=== PATIENT | male | born 1955 | race Caucasian/White ===

== ENCOUNTER → 2016-06-06 | Day surgery (SDC) | payer OTHER ==
[~2016-06-06] VITALS: Ht 177.8 cm; Wt 106.1 kg
[~2016-06-06] MED LIST: ADVIL200 M2 PO; ATORVASTATIN CA20 M1 PO; CLOBETASOL PROP15 GM TOP; LOSARTAN POTASS50 M1 PO; OXYCODONE-ACET1 EACH PO; PROCHLORPERAZIN10 MG PO; TOPICORT100 ML TOP; VITAMIN D250000 UNIT PO
--- NOTE | 2016-06-06 10:21 | RADIOLOGY REPORT ---
EXAMINATION: XR PORTABLE CHEST CLINICAL INFORMATION: Port-A-Cath insertion COMPARISON: CT of April 15, 2016 TECHNIQUE: Portable view of the chest was obtained. FINDINGS: No significant abnormality is noted involving the heart, lungs, mediastinum, bony thorax or soft tissues. Right subclavian port catheter seen in place with tip in the region of the caval atrial junction. No pneumothorax. IMPRESSION: No acute disease. No pneumothorax.
--- NOTE | 2016-06-06 15:04 | Operative Report ---
Operative/Inv Procedure Report Surgery Date: 06/06/16 Name of Procedure: Fluoroscopic-guided insertion of tunneled Port-A-Cath via right subclavian vein Pre-Operative Diagnosis: Metastatic colon cancer Post-Operative Diagnosis: Same Estimated Blood Loss: scant Surgeon/Cereal Supervisor: CINTIA WALTERS,FLACO Portillo Anesthesia: local monitored anesthesi Operative/Procedure Note Note: With the patient supine on the OR table, right arm tucked, head not turned, after induction of MAC sedation, the patient's right subclavian area, including the shoulder neck and contralateral chest, were prepped and draped in the usual sterile fashion. After injecting local anesthetic in the right infraclavicular area, skin, subcutaneous to the clavicle, and inferiorly where the pocket will be, the patient was repositioned to Trendelenburg. Putting your right index finger on the sternal notch and thumb pressing down lateral to the curve of the clavicle, I made a puncture through the skin with the 15 blade scalpel next to thumb. Then along that line towards the tip of your finger, advance a large- bore needle, bevel towards the feet, on a slip tip 10 mL syringe barrel flat against the deltoid, advancing to bone and then "walking" it down just under the clavicle keeping the needle flat as possible, while maintaining vacuum with the plunger, accessing the subclavian venous blood, then replacing the syringe with a wire, sliding in with minimum resistance, confirming the position with the C- arm fluoroscope, making sure the wire is traveling down along the cava towards the right side of the heart and not up or across, and no ectopy. Next I secured the wire to the drape, measured (approximately 23 cm), cut and attached the catheter to the port. Approximately 3-4 cm inferior to the stick site a 2-1/2 cm long skin incision was made with a 15 blade scalpel along Langers lines. It was deepened with cautery and a space was developed inferiorly under the subcutaneous layer. The Port-A-Cath was laid in there and secured in [address] with 2-0 Prolene through the holes in the port, the sutures were kept loose on snaps at this point. Next the catheter was tunneled up subcutaneously with a snap and brought out through the stick site next to the wire. Then the dilator only, was passed over the wire until you could feel it slide under the clavicle, then removed, then re-advanced this time with the peel-away sheath over it, while advancing simultaneously pull the dilator out and advance the sheath, eventually pulling out the dilator and wire completely. Then the catheter was put into the sheath as far as it'll go then while holding that knuckle down with DeBakey's, gently peel-away the sheath with your executive personal assistant. Now the correct position of the catheter was confirmed with the fluoroscope, using a Arriaga needle and heparinized saline solution, the catheter was first aspirated then flushed with approximately 3 mL's, with minimal resistance. The patient was repositioned to neutral, after tying down the 2 Prolenes, the larger incision was closed in layers, 3-0 Vicryl deep and 4-0 subcuticular Monocryl for the skin, and one subcuticular Monocryl for the stick site. Both areas were covered with Mastisol Steri-Strips Telfa and Tegaderm. Chest x-ray was ordered to be done in the recovery room. Lap and sponge counts were correct. Wound expectancy was clean, IV fluids crystalloid, complications none, patient tolerated the procedure well was awakened and returned to the recovery room in satisfactory condition.
--- NOTE | 2016-06-06 16:45 | RADIOLOGY REPORT ---
EXAMINATION:\H\ \N\XR CHEST CLINICAL INFORMATION: Port-A-Cath insertion in operating room. COMPARISON: Chest CT from 04/15/2016 TECHNIQUE: Fluoroscopic imaging assistance was provided to the operating room for Port-A-Cath insertion. 2 spot fluoroscopy images of the chest are submitted into the electronic picture archive. FLUOROSCOPY TIME: 0.7 minutes. DOSE: 7.69 mGy FINDINGS: There is a right chest medication port with intact central catheter terminating at the junction of the superior vena cava and right atrium. IMPRESSION: Fluoroscopic imaging assistance provided to the operating room for Port-A-Cath insertion.
== END ==
LOC: STS 04:10
DX: C18.9 Malignant neoplasm of colon, unspecified (principal); K76.9 Liver disease, unspecified; E78.2 Mixed hyperlipidemia; Z87.891 Personal history of nicotine dependence
CPT/HCPCS: C1751; J0690; J2250

== ENCOUNTER 2016-06-24 11:14 | Emergency (ER) | payer OTHER ==
[~2016-06-24] VITALS: Ht 177.8 cm; Wt 96.2 kg
[~2016-06-24 11:14] MED LIST changes: -ADVIL200 M2 PO; -LOSARTAN POTASS50 M1 PO; -OXYCODONE-ACET1 EACH PO; -PROCHLORPERAZIN10 MG PO; -TOPICORT100 ML TOP
--- NOTE | 2016-06-24 11:42 | ED GENERAL ADULT ---
History of Present Illness General Chief Complaint: Dyspnea (COPD, CHF, Other) Stated Complaint: SOB,ABD PAIN Source: patient, family, old records Exam Limitations: no limitations Allergies Coded Allergies: No Known Allergies (03/17/16) Triage Note: PT TO ED WITH C/O SOB AND RIGHT ABD PAIN, NOW RADIATING ACROSS ABD TO LEFT SIDE. HX COLON, AND LIVER CA, RECENTLY DIAGNOSED, HAD CHEMO X 1 SO FAR. Triage Nurses Notes Reviewed? yes HPI: Patient is a 60-year-old male presents complaining of severe abdominal pain and shortness of breath. Symptoms onset yesterday. Pain in the abdomen is sharp pain currently 10 out of 10, no exacerbating or alleviating factors. Patient took Advil yesterday with no improvement. Patient reports that dyspnea also began yesterday, worsened with ambulation. Patient has a history of metastatic colon cancer, has had one dose of chemotherapy, was supposed to have another round this week but was reportedly dehydrated and received IV fluids but no treatment. Positive diarrhea 2-3 days. Patient denies chest pain, cough, fevers, chills, vomiting, hematochezia, melena. (VEE GORDON,SOCORRO) Vital Signs & Intake/Output Vital Signs & Intake/Output Vital Signs Date Time Temp Pulse Resp B/P Pulse O2 O2 Flow FiO2 Ox Delivery Rate 06/24 1740 98.4 112 16 108/74 98 Nasal 2.0L Cannula 06/24 1729 113 19 104/69 98 Nasal 2.0L Cannula / 1541 98.6 111 20 101/65 96 Nasal 3.0L Cannula / 1420 16 93 Nasal 2.0L Cannula / 1418 98.1 109 18 101/71 88 Room Air 02/ 1305 98.1 110 22 85/54 94 Room Air 02/ 1230 95 02/03 1228 116 18 90/51 94 Room Air / 1145 98.1 130 18 80/60 95 /03 1121 97.9 120 20 88 Room Air Room Air Reconcile Medications Atorvastatin Calcium 20 MG TABLET 1 TAB PO DAILY HPL (Reported) Clobetasol Propionate 0.05 % CREAM..G. 1 RUBI TOP BID PSORIASIS (Reported) apply to affected area(s) Desoximetasone (Topicort) 0.25 % SPRAY 1 SPRAY TOP AD PRN PSORIASIS (Reported ) Ergocalciferol (Vitamin D2) (Vitamin D2) 50,000 UNIT CAPSULE 1 CAP PO QW SUPPLEMENT (Reported) Ibuprofen (Advil) 200 MG TABLET 2 TAB PO PRN PAIN (Reported) Losartan Potassium 50 MG TABLET 1 TAB PO QAM BP (Reported) Oxycodone HCl/Acetaminophen (Oxycodone-Acetaminophen 5-325) 5 MG-325 MG TABLET 1 TAB PO PRN PAIN (Reported) Prochlorperazine Maleate 10 MG TABLET 1 TAB PO PRN N/V (Reported) (REBA GREER DO) ED Sepsis Exam Date of Focused Sepsis Exam: 06/24/16 Time of Focused Sepsis Exam: 1145 Sepsis Cardiac Exam: Tachycardia Sepsis Resp Exam: CTA Sepsis Cap Refill Exam: <2 Sec Sepsis Peripheral Pulse Exam: Normal Sepsis Peripheral Pulse Location: Radial Sepsis Skin Color Exam: Normal for Ethnicity Skin Temp/Moisture Exam: Warm/Dry (SOCORRO MCHUGH) Past History Travel History Traveled to [place] past 21 day No Medical History Any Pertinent Medical History? see below for history Neurological: NONE EENT: NONE Cardiovascular: hyperlipidemia Respiratory: NONE Gastrointestinal: COLON CA Hepatic: LIVER CA Renal: NONE Musculoskeletal: NONE Psychiatric: NONE Endocrine: NONE Blood Disorders: NONE Cancer(s): COLON AND LIVER CA Surgical History Surgical History: cholecystectomy Psychosocial History What is your primary language Belizean Tobacco Use: Quit >30 days ago ETOH Use: denies use Illicit Drug Use: denies illicit drug use Family History Hx Contributory? No (SOCORRO MCHUGH) Review of Systems Review of Systems Constitutional: Reports: malaise. Denies: chills, fever. EENTM: Reports: no symptoms. Respiratory: Reports: short of breath. Denies: cough. Cardiovascular: Denies: chest pain, peripheral edema, syncope. GI: Reports: see HPI, abdominal pain, diarrhea (none today). Denies: vomiting. Genitourinary: Reports: no symptoms. Musculoskeletal: Reports: no symptoms. Skin: Reports: no symptoms. Neurological/Psychological: Reports: no symptoms. Hematologic/Endocrine: Reports: no symptoms. Immunologic/Allergic: Reports: no symptoms. (SOCORRO MCHUGH) Physical Exam Physical Exam General Appearance: alert, awake Head: atraumatic, normal appearance Eyes: Bilateral: normal appearance, PERRL, EOMI. Ears, Nose, Throat: hearing grossly normal Neck: normal inspection, supple, full range of motion Respiratory: normal breath sounds, no respiratory distress, lungs clear Cardiovascular: tachycardia (regular rhythm) Peripheral Pulses: 2+ radial (R) Gastrointestinal: soft, diffuse abdominal tenderness with guarding on the left side Back: normal inspection, normal range of motion Extremities: normal inspection, normal capillary refill, normal range of motion, no edema Neurologic/Psych: awake, alert, oriented x 3, normal mood/affect Skin: intact, normal color, warm/dry Lymphatic: no anterior cervical trina Core Measures ACS in differential dx? No CVA/TIA Diagnosis: No Severe Sepsis Present: Yes BC x2: Yes Lactic Acid x2: Yes IV ABX Broad Spectrum: Yes NS/LR Started: Yes Septic Shock Present: No (SOCORRO MCHUGH) Progress Differential Diagnoses I considered the following diagnoses in my evaluation of the patient: Plan of Care: Orders Procedure Date/time Status LACTIC ACID 06/24 1440 Complete BLOOD CULTURE 06/24 1236 Active Telemetry/Boat Joiner Helper 06/24 1219 Active URINALYSIS 06/24 1140 Complete TROPONIN LEVEL 06/24 1140 Complete PROTHROMBIN TIME 06/24 1140 Complete LIPASE 06/24 1140 Complete LACTIC ACID 06/24 1140 Complete D-DIMER 06/24 1140 Complete COMPREHENSIVE METABOLIC PANEL 06/24 1140 Complete CBC WITHOUT DIFFERENTIAL 06/24 1140 Complete AMYLASE 06/24 1140 Complete EKG 06/24 1140 Active Laboratory Tests 06/24/16 1521: Lactic Acid 4.1 H 06/24/16 1447: Urine Color ELISA, Urine Clarity HAZY H, Urine pH 6.0, Ur Specific Aurora 1.015, Urine Protein 100 H, Urine Ketones NEG, Urine Nitrite NEG, Urine Bilirubin NEG, Urine Urobilinogen 2.0 H, Ur Leukocyte Esterase NEG, Ur Microscopic SEDIMENT EXAMINED, Urine RBC 3-5, Urine WBC RARE, Hyaline Casts RARE H, Urine Mucus RARE, Urine Hemoglobin SMALL H, Urine Glucose NEG 06/24/16 1208: Anion Gap 18 H, Estimated GFR > 60, BUN/Creatinine Ratio 19.2, Glucose 113 H, Lactic Acid 8.5 H, Calcium 8.8, Total Bilirubin 1.8 H, AST 41, ALT 27, Alkaline Phosphatase 203 H, Troponin I < 0.01, Total Protein 6.3, Albumin 3.2 L, Globulin 3.1, Albumin/Globulin Ratio 1.0 L, Amylase < 30 L, Lipase 27, PT 22.4 H, INR 2.15 H, D-Dimer 1049 H, CBC w Diff MAN DIFF ORDERED, RBC 5.53, MCV 71.5 L, MCH 22.7 L, RDW 20.7 H, MPV 8.4, Gran % 95.7 H, Lymphocytes % 2.5 L, Monocytes % 1.8, Eosinophils % 0, Basophils % 0 L, Absolute Granulocytes 32.9 H, Segmented Neutrophils 77 H, Band Neutrophils 18 H, Absolute Lymphocytes 0.8 L, Lymphocytes 2 L, Monocytes 3, Absolute Monocytes 0.6, Absolute Eosinophils 0, Absolute Basophils 0, Platelet Estimate ADEQUATE, Normochromic RBCs VERIFIED, Polychromasia , Poikilocytosis FEW, Anisocytosis 1 +, Microcytic Cells 1+, Bowie Cells FEW, Elliptocytes 1+, PUBS MCHC 31.8 L Microbiology 06/24 1250 BLOOD: Blood Culture - RECD 06/24 1200 BLOOD: Blood Culture - RECD 1155: Discussed with Dr. Greer. 1230: Patient reports pain improved. Continues with hypotension. Elevated WBC. Ceftriaxone and Metronidazole ordered empirically for possible intra-abdominal infection with imaging pending. 1300: Patient re-evaluated, pain returning. Abdomen re-evaluated. Tenderness with mild guarding to the right side of the abdomen. Discussed with Dr. Greer, likely ICU admission, awaiting CT scan. 1430: Discussed with Dr. Villavicencio covering for Dr. Freeman 1440: Discussed with Dr. Herr: have surgical PA come to see patient. 1442: Discussed with Efren surgical PA. 1500: Evaluated by Dr. Kohli: will review CT scan with the radiologist and determine if patient needs to be transferred or can be admitted to [place]. 1600: Dr. Kohli reviewed CT scan with radiology: needs Ir intervention, would likely be better served at [facility] due to presence of hepobiliary surgeons if patient deteriorates. 1640: Discussed with Dr. Turner([facility] medicine attending): accepts transfer of patient. (VEE GORDON,SOCORRO) Diagnostic Imaging: Viewed by Me: CT Scan. Discussed w/RAD: CT Scan. Radiology Impression: PATIENT: ZENA PAREKH PRESENT AGE: 60 PATIENT ACCOUNT NO: [id number] : 55 LOCATION: [facility] ORDERING PHYSICIAN: SOCORRO GORDON SERVICE DATE: 06/24/16 EXAM TYPE: CAT - CT ABD & PELVIS W IV CONTRAST; CTA CHEST-PULMONARY EMBOLISM EXAMINATION: CT ANGIOGRAM OF THE CHEST WITH AND WITHOUT CONTRAST (CT PULMONARY ANGIOGRAM FOR PE) CT ABDOMEN AND PELVIS WITH CONTRAST CLINICAL INFORMATION: Dyspnea and tachycardia. Diffuse severe abdominal pain. History of colon cancer. COMPARISON: CTs from 04/15/2016 and 03/17/2016. TECHNIQUE: Prior to contrast administration, noncontrast localization images were obtained. Subsequently, multidetector volumetric imaging was performed from the thoracic inlet to below the diaphragm following the administration of 98 mL Optiray 320 intravenous contrast. This was followed by axial acquisition of the abdomen and pelvis postcontrast. No contrast reaction reported Sagittal, coronal, and MIP oblique sagittal reformatted images were obtained on the CT workstation, uploaded to PACS, and reviewed. Total exam dose-length product 1124 mGy-cm FINDINGS: QUALITY OF STUDY/CONTRAST BOLUS: Satisfactory. PULMONARY ARTERIES: No central or segmental pulmonary emboli. THORACIC AORTA: No aneurysm or dissection. LUNG: The central airways are patent. There is moderate centrilobular emphysema. Bibasilar dependent atelectasis. No dense consolidation. Stable 0.3 cm right middle lobe nodule on image 221/471. No new pulmonary nodules are identified. PLEURA: No pleural effusion or pneumothorax. MEDIASTINUM: The heart is normal in size. No pericardial effusion. There is a prominent lymph node in the anterior epicardial fat measuring 1.3 x 0.8 cm. This is slightly increased in prominence from prior. While the prominent mediastinal lymph nodes are also noted, similar to prior. No evidence of septal bowing or right heart strain. CHEST WALL/AXILLA: No pathologically enlarged axillary lymph nodes. Right chest wall port noted. LIVER , GALLBLADDER, AND BILIARY TREE: The liver is diffusely abnormal. Pneumobilia is again noted. The dominant mass which had been seen in segment 8 of the liver is enlarged and more heterogeneous. There is extensive internal gas within the mass , which is new from prior. This area now measures 11.4 x 6.7 x 11.5 cm. Multiple additional masses have increased in size from previous. For instance, there is a lesion in segment 6 of the liver which measures 2.5 cm, previously measuring 1.5 cm. Status post cholecystectomy. PANCREAS: Unremarkable. SPLEEN: Unremarkable. ADRENAL GLANDS: Unremarkable. KIDNEYS AND URETERS: The kidneys are normal in size, shape, and attenuation. No hydronephrosis, hydroureter, or calculi seen. No perinephric stranding. BLADDER: Unremarkable. GASTROINTESTINAL TRACT: The stomach is unremarkable. There is no bowel obstruction. Mild wall thickening of the ileum is noted. Mild wall thickening at the hepatic flexure of the colon is well. There is a small volume of free fluid in the pelvis which measures slightly higher than simple. There is free intraperitoneal air noted, most prominently around the liver. ABDOMINAL WALL: Fat-containing right inguinal hernia noted. LYMPH NODES: Enlarged retroperitoneal lymph nodes are present. For instance, there is a portacaval node measuring 3.3 x 1.5 cm on image 39/113. This is similar to previous. This appears partially necrotic. There is a left paracaval node measuring 1.5 x 0.8 cm on image 40/113. This appears increased in prominence from previous. VASCULAR: Slight ectasia of the infrarenal abdominal aorta. Scattered atherosclerotic calcifications. The portal vein is patent. PELVIC VISCERA: The prostate and seminal vesicles are unremarkable. OSSEOUS STRUCTURES: L3 vertebral body compression deformity is unchanged. Multilevel degenerative changes of the spine. IMPRESSION: 1. Free intraperitoneal air. This is of uncertain etiology. Wall thickening is seen involving the ileum and hepatic flexure of the colon, and bowel perforation cannot be excluded these findings could also be reactive to the process in the liver. 2. Progression of metastatic disease in the liver with enlargement of multiple hepatic lesions. The dominant lesion in segment 8 of the liver now has significant internal gas, highly concerning for a superimposed infectious process. Separate consideration for the intraperitoneal air is extension from the liver. There is diffuse pneumobilia present. 3. Progression of lymphadenopathy in the retroperitoneum, with stable and increased lymph nodes. Stable and increased mediastinal and epicardial lymph nodes as well. 4. No evidence of pulmonary embolism. VTE: negative This critical result was discussed with SOCORRO BAXTER PA-C by telephone at 06/24/2016 2:26 PM and it was ascertained that the content and urgency of the report was understood at the time of direct communication. DICTATED BY: ELIJAH WALTERS,JONNA DATE/TIME DICTATED:06/24/161408 PRE CERTIFICATION SPECIALIST:CHEYANNE DATE/TIME TRANSCRIBED:06/24/161408 CONFIDENTIAL, DO NOT COPY WITHOUT APPROPRIATE AUTHORIZATION. <Electronically signed in Other Vendor System> SIGNED BY: JONNA NAVA MD 06/24/16 1431 Initial ED EKG: sinus tachycardia 129 bpm, normal axis,, normal intervals, no acute st/t wave changes compared to previous ekg. Prior EKG: unchanged Rhythm Strip: sinus tachycardia (SOCORRO MCHUGH) Comments: 06/24/16 7 PM I saw and personally examined the patient and I agree with the PAs evaluation. Abdominal pain. CT shows free air. The patient was transferred to [facility] for further care, seen and evaluated by surgery. IV antibiotics were given. (REBA GREER DO) Departure Departure Time of Disposition: 1444 Disposition: OTHER GENERAL HOSPITAL (ACUTE) Condition: Critical Clinical Impression Primary Impression: Free intraperitoneal air Secondary Impressions: Pneumobilia Sepsis Qualifiers: Sepsis type: sepsis due to unspecified organism Qualified Code: A41.9 - Sepsis, unspecified organism Referrals: SHANTANU OLIVERA,BONNIE Marie (PCP/Family) Departure Forms: Customer Survey General Discharge Information Admission Note Documentation of Exam: Documentation of any treatments & extenuating circumstances including Concerns Regarding Discharge (functional status, medication knowledge or non-compliance, living conditions, etc.) that warrant an admission rather than observation: (SOCORRO MCHUGH) PA/PHP WEBSITE DEVELOPER Co-Sign Statement Statement: ED Attending supervision documentation- [X] I saw and evaluated the patient. I have also reviewed all the pertinent lab results and diagnostic results. I agree with the findings and the plan of care as documented in the PA's/PHP WEBSITE DEVELOPER's documentation. [] I have reviewed the ED Record and agree with the PA's/PHP WEBSITE DEVELOPER's documentation. [] Additions or exceptions (if any) to the PAs/PHP WEBSITE DEVELOPER's note and plan are summarized below: [] (REBA GREER DO) Critical Care Note Critical Care Note Critical Care Time: 30-74 min (SOCORRO MCHUGH)
[2016-06-24 12:22] LABS: ABSOLUTE BASOPHIL COUNT 0 /CUMM (0.0-0.2); ABSOLUTE EOSINOPHIL COUNT 0 /CUMM (0.0-0.7); EOSINOPHIL % 0 % (0-5); MEAN PLATELET VOLUME 8.4 FL (7.4-10.4); RED BLOOD CELL CT 5.53 /CUMM (4.70-6.10)
[2016-06-24 12:26] LABS: ABSOLUTE GRANULOCYTE CT 32.9 /CUMM (1.4-6.5); ABSOLUTE LYMPH COUNT 0.8 /CUMM (1.2-3.4); ABSOLUTE MONOCYTE COUNT 0.6 /CUMM (0.10-0.60); BASOPHIL % 0 % (0.0-2.0); GRANULOCYTE % 95.7 % (42.2-75.2); HEMATOCRIT 39.5 % (42-52); MEAN CORPUSCULAR HGB 22.7 PG (27.0-31.0); MEAN CORPUSCULAR HGB CONC 31.8 G/DL (33.0-37.0); MEAN CORPUSCULAR VOLUME 71.5 FL (80.0-94.0); PLATELET COUNT 398 /CUMM (130-400); RBC DISTRIBUTION WIDTH 20.7 % (11.5-14.5)
[2016-06-24 12:29] LABS: WHITE BLOOD CELL COUNT 34.3 /CUMM (4.8-10.8)
[2016-06-24 12:36] LABS: PT 22.4 SEC (9.4-12.5)
--- NOTE | 2016-06-24 14:31 | CT SCAN REPORT ---
EXAMINATION: CT ANGIOGRAM OF THE CHEST WITH AND WITHOUT CONTRAST (CT PULMONARY ANGIOGRAM FOR PE) CT ABDOMEN AND PELVIS WITH CONTRAST CLINICAL INFORMATION: Dyspnea and tachycardia. Diffuse severe abdominal pain. History of colon cancer. COMPARISON: CTs from 04/15/2016 and 03/17/2016. TECHNIQUE: Prior to contrast administration, noncontrast localization images were obtained. Subsequently, multidetector volumetric imaging was performed from the thoracic inlet to below the diaphragm following the administration of 98 mL Optiray 320 intravenous contrast. This was followed by axial acquisition of the abdomen and pelvis postcontrast. No contrast reaction reported Sagittal, coronal, and MIP oblique sagittal reformatted images were obtained on the CT workstation, uploaded to PACS, and reviewed. Total exam dose-length product 1124 mGy-cm FINDINGS: QUALITY OF STUDY/CONTRAST BOLUS: Satisfactory. PULMONARY ARTERIES: No central or segmental pulmonary emboli. THORACIC AORTA: No aneurysm or dissection. LUNG: The central airways are patent. There is moderate centrilobular emphysema. Bibasilar dependent atelectasis. No dense consolidation. Stable 0.3 cm right middle lobe nodule on image 221/471. No new pulmonary nodules are identified. PLEURA: No pleural effusion or pneumothorax. MEDIASTINUM: The heart is normal in size. No pericardial effusion. There is a prominent lymph node in the anterior epicardial fat measuring 1.3 x 0.8 cm. This is slightly increased in prominence from prior. While the prominent mediastinal lymph nodes are also noted, similar to prior. No evidence of septal bowing or right heart strain. CHEST WALL/AXILLA: No pathologically enlarged axillary lymph nodes. Right chest wall port noted. LIVER, GALLBLADDER, AND BILIARY TREE: The liver is diffusely abnormal. Pneumobilia is again noted. The dominant mass which had been seen in segment 8 of the liver is enlarged and more heterogeneous. There is extensive internal gas within the mass, which is new from prior. This area now measures 11.4 x 6.7 x 11.5 cm. Multiple additional masses have increased in size from previous. For instance, there is a lesion in segment 6 of the liver which measures 2.5 cm, previously measuring 1.5 cm. Status post cholecystectomy. PANCREAS: Unremarkable. SPLEEN: Unremarkable. ADRENAL GLANDS: Unremarkable. KIDNEYS AND URETERS: The kidneys are normal in size, shape, and attenuation. No hydronephrosis, hydroureter, or calculi seen. No perinephric stranding. BLADDER: Unremarkable. GASTROINTESTINAL TRACT: The stomach is unremarkable. There is no bowel obstruction. Mild wall thickening of the ileum is noted. Mild wall thickening at the hepatic flexure of the colon is well. There is a small volume of free fluid in the pelvis which measures slightly higher than simple. There is free intraperitoneal air noted, most prominently around the liver. ABDOMINAL WALL: Fat-containing right inguinal hernia noted. LYMPH NODES: Enlarged retroperitoneal lymph nodes are present. For instance, there is a portacaval node measuring 3.3 x 1.5 cm on image 39/113. This is similar to previous. This appears partially necrotic. There is a left paracaval node measuring 1.5 x 0.8 cm on image 40/113. This appears increased in prominence from previous. VASCULAR: Slight ectasia of the infrarenal abdominal aorta. Scattered atherosclerotic calcifications. The portal vein is patent. PELVIC VISCERA: The prostate and seminal vesicles are unremarkable. OSSEOUS STRUCTURES: L3 vertebral body compression deformity is unchanged. Multilevel degenerative changes of the spine. IMPRESSION: 1. Free intraperitoneal air. This is of uncertain etiology. Wall thickening is seen involving the ileum and hepatic flexure of the colon, and bowel perforation cannot be excluded these findings could also be reactive to the process in the liver. 2. Progression of metastatic disease in the liver with enlargement of multiple hepatic lesions. The dominant lesion in segment 8 of the liver now has significant internal gas, highly concerning for a superimposed infectious process. Separate consideration for the intraperitoneal air is extension from the liver. There is diffuse pneumobilia present. 3. Progression of lymphadenopathy in the retroperitoneum, with stable and increased lymph nodes. Stable and increased mediastinal and epicardial lymph nodes as well. 4. No evidence of pulmonary embolism. VTE: negative This critical result was discussed with SOCORRO BAXTER PA-C by telephone at 06/24/2016 2:26 PM and it was ascertained that the content and urgency of the report was understood at the time of direct communication.
[2016-06-24] MEDS ORDERED: LOSARTAN POTASS50 M1 PO (17:29)
[2016-06-24] MEDS ORDERED: PROCHLORPERAZIN10 MG PO (17:29)
[2016-06-24] MEDS ORDERED: TOPICORT100 ML TOP (17:30)
[2016-06-24] MEDS ORDERED: OXYCODONE-ACET1 EACH PO (17:30)
[2016-06-24] MEDS ORDERED: ADVIL200 M2 PO (17:31)
[2016-06-24 17:40] VITALS: BP 108/74
--- NOTE | 2016-07-02 17:39 | Cons- General Surgery ---
General Information and HPI Consulting Request Date of Consult: 06/24/16 Requested By: Chi Bhatt M.D., ER History of Present Illness: CC: abdominal pain HPI: 60-year-old nondiabetic ex-smoker recently diagnosed with a large liver metastases from a colon primary, has started systemic chemotherapy about a week ago, I saw him last for insertion of Port-A-Cath, but he comes to the ER with gradual worsening weakness and abdominal pain mostly right sided and today it was severe, a larger area more intense worse on movement, not like he had a few months ago. He's had some nausea no vomiting feels like he might have a fever, no bleeding per rectum radiate to his back. He does not recall any preceding unusual meals or unusual straining or lifting or constipation. Otherwise no changes in bowel habits weight or appetite. It's important to note that he has had a cholecystectomy for choledocholithiasis which did involve a sphincterotomy. PFSH and ROS were reviewed and have not changed since the previous consult E/M in our office on 03/23/16, unless stated. No new meds or Dxes. Main medications are for blood pressure and hyperlipidemia, both stable. Family history reviewed there is cancer in the family but not colorectal Allergies/Medications Allergies: Coded Allergies: No Known Allergies (03/17/16) Home Med List: Atorvastatin Calcium 20 MG TABLET 1 TAB PO DAILY HPL (Reported) Clobetasol Propionate 0.05 % CREAM..G. 1 RUIB TOP BID PSORIASIS (Reported) apply to affected area(s) Desoximetasone (Topicort) 0.25 % SPRAY 1 SPRAY TOP AD PRN PSORIASIS (Reported ) Ergocalciferol (Vitamin D2) (Vitamin D2) 50,000 UNIT CAPSULE 1 CAP PO QW SUPPLEMENT (Reported) Ibuprofen (Advil) 200 MG TABLET 2 TAB PO PRN PAIN (Reported) Losartan Potassium 50 MG TABLET 1 TAB PO QAM BP (Reported) Oxycodone HCl/Acetaminophen (Oxycodone-Acetaminophen 5-325) 5 MG-325 MG TABLET 1 TAB PO PRN PAIN (Reported) Prochlorperazine Maleate 10 MG TABLET 1 TAB PO PRN N/V (Reported) Past History Medical History Neurological: NONE EENT: NONE Cardiovascular: hyperlipidemia Respiratory: NONE Gastrointestinal: COLON CA Hepatic: LIVER CA Renal: NONE Musculoskeletal: NONE Psychiatric: NONE Endocrine: NONE Blood Disorders: NONE Cancer(s): COLON AND LIVER CA Surgical History Pertinent Surgical History: cholecystectomy Psychosocial History ETOH Use: denies use Illicit Drug Use: denies illicit drug use Functional Ability ADLs Independent: dressing, eating, toileting, bathing. Ambulation: independent IADLs Independent: shopping, housework, finances, food prep, telephone, transportation , medication admin. Review of Systems Review of Systems: Reviewed as stated above Exam & Diagnostic Data Vital Signs and I&O Blood pressure 108/74, when he first came in his systolic was in the 80s, pulse 112 respiration 16 temperature 98.4 Physical Exam: Constitutional: pleasant, no acute distress, conversant Eyes: sclera anicteric ENMT: ears and nose atraumatic, moist mucous membranes, good dentition, no lip lesions Neck: Supple, trachea is midline, no cervical or supraclavicular adenopathy and no palpable thyromegaly Cardiovascular: S1, S2, no murmurs, no peripheral edema Respiratory: clear to auscultation with normal respiratory effort and no intercostal retractions GI: abdomen soft, he does have right-sided abdominal pain, nondistended, no palpable hepatosplenomegaly Extremities / lymphatics: symmetrically warm, free range of motion no peripheral edema, no cervical, supraclavicular, axillary, or inguinal adenopathy Musculoskeletal: Did not evaluate gait and station, no digital cyanosis, good muscle strength and tone no atrophy, motor grossly 5 out of 5 throughout Skin: no jaundice, no rashes warm, nondiaphoretic, no areas of erythema or induration Psychiatric: mood and affect are appropriate and alert and oriented to person place and time Last 24 Hours of Labs: Glucose 113 BUN slightly up at 23 creatinine slightly up at 1.2 sodium 133 chloride 97 bicarbonate 18 anion gap 18 lactate 4.1 amylase lipase normal albumin 3.2, bilirubin 1.8 alkaline phosphatase 203 AST ALT normal white blood cell count 34 hemoglobin 12.6 which is slightly up, granulocytes 96% I reviewed the CT scan from today on PACS myself and shows some free intraperitoneal air there is also some pneumobilia which has been there previously and there is gas within the large hepatic metastasis there is no obvious bowel obstruction, free fluid is minimal in the the right paracolic gutter Assessment/Plan Assessment/Plan Peritonitis related to infection related to a large hepatic metastasis which has probably gotten infected from adjacent pneumobilia related to a remote sphincterotomy, and then ruptured to the capsule. Chemotherapy last week may have played a role, perhaps there is an element of response/necrosis in the metastasis. Despite the small amount of free air, the process is relatively localized and I feel surgical incision or drainage could spread it and worsen the sepsis, also concern of seeding the tumor. Overall the goal is to avoid delaying systemic treatment, as little as possible. He is relatively stable now , having improved with IV hydration. Continue IV fluids and empiric broad- spectrum antibiotics. Discussed and reviewed the case with interventional radiology who feel this is quite complex and because of the proximity of the metastasis to the pleura, there may not be an easy window to access it with a drain, he may need several. Thus because of the urgency and complexity, I recommend transferring to a tertiary center where they have hepatobiliary back up. Problem List: 1. Free intraperitoneal air 2. Pneumobilia 3. Peritonitis 4. Metastases to the liver 5. Colorectal cancer 6. Sepsis Consult Acknowledgment - Thank you for your consult request.
== END 2016-06-24 18:31 | disposition short-term general hospital (02) ==
LOC: ERH 11:14
PROVIDERS: Physician Assistant
DX: R10.84 Generalized abdominal pain (principal); E78.5 Hyperlipidemia, unspecified; C18.9 Malignant neoplasm of colon, unspecified; C22.9 Malignant neoplasm of liver, not specified as primary or secondary; Z87.891 Personal history of nicotine dependence
CPT/HCPCS: 74177; 81001; 87040; 93005; 93010; 96374; 96375; 96376; 99291; J0696